=== PATIENT | female | born 1945 ===

== ENCOUNTER → 2018-10-13 | Outpatient (CLI) | payer OTHER ==
[~2018-10-13] MED LIST: AMLO5 PO; ATOR10 PO; IBUP600; LISI20 PO; METO25ER PO; OXYACE5T PO
== END | disposition home or self-care (01) ==
LOC: LAB 19:24 → LAB SHORT 19:24
PROVIDERS: Family Medicine
DX: Z12.72 Encounter for screening for malignant neoplasm of vagina (principal); Z90.710 Acquired absence of both cervix and uterus
CPT/HCPCS: G0145

== ENCOUNTER → 2019-01-01 | Outpatient (CLI) | payer OTHER | END | disposition home or self-care (01) | LOC: LAB SHORT 16:26 → LAB EV 16:26 | DX: R30.0 Dysuria (principal) | CPT/HCPCS: 87077; 87086; 87106; 87186 ==

== ENCOUNTER → 2021-09-04 | Outpatient (CLI) | payer OTHER ==
[2021-09-04 18:16] LABS: Appearance, Urine Clear (Clear); Bilirubin, Urine Neg (Neg); Blood, Urine 1+ (Neg); Color, Urine Yellow (P-Yellow); Glucose Qualitative, Urine Neg (Neg); Ketones, Urine Neg (Neg); Leukocyte Esterase, Urine Neg (Neg); Nitrite, Urine Neg (Neg); Protein, Urine Neg (Neg); Urobilinogen, Urine NORM (Normal)
[2021-09-04 19:06] LABS: Red Blood Cells, Urine 0-2 /hpf (0-2); Squamous Epithelial Cells Many /hpf (Few); White Blood Cells, Urine 0-2 /hpf (0-5)
[2021-09-04 19:07] LABS: Bacteria Mod /hpf; Mucus Light (0-Heavy)
== END ==
LOC: LAB SHORT 14:30
PROVIDERS: Physician Assistant Medical
DX: R10.9 Unspecified abdominal pain (principal)
CPT/HCPCS: 81001

== ENCOUNTER 2022-09-19 14:10 | Emergency (ER) | payer OTHER ==
[~2022-09-19] VITALS: Ht 149.9 cm; Wt 67.1 kg
[2022-09-19] MEDS ORDERED: AMLODIPINE BESY10 MG PO (14:29)
[2022-09-19] MEDS ORDERED: LISI20 PO (14:29)
[2022-09-19] MEDS ORDERED: HYDR1TAB94 PO (17:04)
== END 2022-09-19 18:04 | disposition home or self-care (01) ==
LOC: ER 14:10
DX: S00.03XA Contusion of scalp, initial encounter (principal); S60.222A Contusion of left hand, initial encounter; I10 Essential (primary) hypertension; Z23 Encounter for immunization; Z88.2 Allergy status to sulfonamides; Z91.048 Other nonmedicinal substance allergy status; Z79.899 Other long term (current) drug therapy; W22.8XXA Striking against or struck by other objects, initial encounter
CPT/HCPCS: 70450; 73130; 90714; 93005; 93010; A9270

== ENCOUNTER → 2023-09-09 | Outpatient (CLI) | payer OTHER ==
[~2023-09-09] MED LIST changes: +AMLODIPINE BESY10 MG PO; +HYDR1TAB94 PO
== END ==
LOC: LAB 13:35 → LAB SHORT 13:35
DX: R35.0 Frequency of micturition (principal)
CPT/HCPCS: 87086

== ENCOUNTER → 2024-12-08 | Outpatient (CLI) | payer OTHER ==
[2024-12-08 16:32] LABS: BASOPHILS ABSOLUTE AUTO 0.07 K/mm3 (0.00-0.23); BASOPHILS PERCENT AUTO 1 % (0-2); EOSINOPHILS ABSOLUTE AUTO 0.23 K/mm3 (0.00-0.68); EOSINOPHILS PERCENT AUTO 4 % (0-6); Hematocrit 41.6 % (33.0-51.0); Hemoglobin 13.8 g/dL (11.5-16.0); IMMATURE GRAN ABSOLUTE AUTO 0.05 K/mm3 (0.00-0.10); IMMATURE GRAN PERCENT AUTO 1 % (0-1); LYMPHOCYTES ABSOLUTE AUTO 1.19 K/mm3 (0.84-5.20); LYMPHOCYTES PERCENT AUTO 22 % (21-46); MONOCYTES ABSOLUTE AUTO 0.67 K/mm3 (0.16-1.47); MONOCYTES PERCENT AUTO 12 % (4-13); Mean Corpuscular HGB 30.3 pg (26.0-34.0); Mean Corpuscular HGB Conc 33.2 g/dL (31.5-36.5); Mean Corpuscular Volume 91 fL (80-100); Mean Platelet Volume 11.3 fL (9.1-12.4); NEUTROPHILS PERCENT AUTO 60 % (41-73); Platelet Count 234 K/mm3 (150-400); RDW Coefficient Variation 13.7 % (11.7-14.2); RDW Standard Deviation 45.7 fL (35.1-46.3); Red Blood Cell Count 4.56 M/mm3 (3.80-5.20); White Blood Cell Count 5.51 K/mm3 (4.00-11.30)
[2024-12-08 16:43] LABS: Albumin, Blood 3.5 g/dL (3.4-5.0); Albumin/Globulin Ratio 1.1 (0.8-1.8); Bilirubin, Total 0.5 mg/dL (0.1-1.0); Bun/Creatinine Ratio 22.1 (12.0-20.0); Calcium, Blood 9.8 mg/dL (8.5-10.1); Creatinine, Blood 0.95 mg/dL (0.40-1.00); Globulin, Blood 3.2 g/dL (2.2-4.0); Potassium, Blood 4.2 mmol/L (3.5-5.5); Total Protein, Blood 6.7 g/dL (6.4-8.2)
== END | disposition home or self-care (01) ==
LOC: LAB SHORT 16:26 → LAB 16:26
PROVIDERS: Physician Assistant
DX: R06.02 Shortness of breath (principal); R07.9 Chest pain, unspecified
CPT/HCPCS: 80053; 83690; 83880; 84484; 85025

== ENCOUNTER 2025-10-03 06:36 | Day surgery (SDC) | payer OTHER ==
[~2025-10-03] VITALS: Ht 149.9 cm; Wt 65.7 kg
[~2025-10-03 06:36] MED LIST changes: +Lidocaine 1%-Epineph 1:100000 20 ML MDV ONE; +NS 500 ML IV ONE
[2025-10-03] MEDS ORDERED: CeFAZolin Sodium 2,000 MG VIAL ONE (07:02)
[2025-10-03] MEDS ORDERED: NS 500 ML IV ONE (07:05)
[2025-10-03] MEDS ORDERED: METOPROLOL SUCC25 MG PO (07:11)
[2025-10-03] MEDS ORDERED: LIDOCAINE1 EACH TOP (07:11)
[2025-10-03] MEDS ORDERED: TIZANIDINE HCL213 PO (07:12)
[2025-10-03] MEDS ORDERED: AMLODIPINE BESYL5 MG PO (07:13)
--- NOTE | 2025-10-03 07:24 | NUR ---
10/03/25 0724 [facility] 9219: TIMEOUT FOR PRE-OP INJECTION. PRE-OP INJECTION BY DR FLORES TOTAL OF 5 CC OF MIX OF (9 CC LIDOCAINE 1% WITH EPI 1:100,000 WITH 1 CC SODIUM BICARB) TO OPERATIVE SITE. PT TOLERATED WELL.
[2025-10-03] MEDS ORDERED: Midazolam HCl 1MG / ML 2ML Vial ONE (07:33)
[2025-10-03] MEDS ORDERED: FentaNYL Citrate 50 MCG/ML 2 ML Injection ONE (07:33)
[2025-10-03 08:00] VITALS: BP 137/62
--- NOTE | 2025-10-03 08:13 | NUR ---
10/03/25 0813 Katherine Holley RN ASSISTED PT TO RECLINER. VSS. PT DENIES PAIN/DIZZINESS/NAUSEA.
== END 2025-10-03 08:39 | disposition home or self-care (01) ==
LOC: ORSCSDS 06:36
PROVIDERS: Orthopaedic Surgery
PROC: 01N54ZZ Release Median Nerve, Percutaneous Endoscopic Approach (ICD-10-PCS; principal; 2025-10-03 08:00)
DX: G56.02 Carpal tunnel syndrome, left upper limb (principal); I10 Essential (primary) hypertension; E78.5 Hyperlipidemia, unspecified; Z79.899 Other long term (current) drug therapy
CPT/HCPCS: J0690; J2250; J3010; J7040